=== PATIENT | female | born 1955 | race Caucasian/White ===

== ENCOUNTER → 2023-10-13 10:32 | Outpatient (REF) | payer OTHER, SELFPAY | LOC: HWRAD 10:32 | PROVIDERS: ATTENDING PHYSICIAN Family Medicine | DX: M54.16 Radiculopathy, lumbar region (principal); M62.830 Muscle spasm of back; N95.1 Menopausal and female climacteric states | CPT/HCPCS: 72110; 77080 ==

== ENCOUNTER → 2023-10-19 09:54 | Outpatient (REF) | payer OTHER, SELFPAY | LOC: RAD 09:54 | PROVIDERS: ATTENDING PHYSICIAN Family Medicine | DX: I83.893 Varicose veins of bilateral lower extremities with other complications (principal) | CPT/HCPCS: 93970 ==

== ENCOUNTER → 2023-12-25 13:52 | Outpatient (REF) | payer OTHER, SELFPAY | LOC: HWRCS 13:52 | PROVIDERS: ATTENDING PHYSICIAN Family Medicine | DX: R60.0 Localized edema (principal) | CPT/HCPCS: 93306 ==

== ENCOUNTER 2024-02-16 14:47 | Outpatient (RCR) | payer OTHER, SELFPAY | END 2024-02-16 23:59 | disposition home or self-care (01) | LOC: RPT 14:47 | PROVIDERS: ATTENDING PHYSICIAN Family Medicine | DX: I89.0 Lymphedema, not elsewhere classified (principal); Z73.6 Limitation of activities due to disability | CPT/HCPCS: 97110; 97140; 97163; 97535 ==

== ENCOUNTER 2024-03-29 12:47 | Outpatient (RCR) | payer OTHER, SELFPAY | END 2024-03-29 23:59 | disposition home or self-care (01) | LOC: RPT 12:47 | PROVIDERS: ATTENDING PHYSICIAN Family Medicine | DX: I89.0 Lymphedema, not elsewhere classified (principal); Z73.6 Limitation of activities due to disability | CPT/HCPCS: 97110; 97140; 97164; 97530; 97535 ==

== ENCOUNTER 2024-04-29 11:06 | Outpatient (RCR) | payer OTHER, SELFPAY | END 2024-04-29 23:59 | disposition home or self-care (01) | LOC: RPT 11:06 | PROVIDERS: ATTENDING PHYSICIAN Family Medicine | DX: I89.0 Lymphedema, not elsewhere classified (principal); N39.3 Stress incontinence (female) (male); Z73.6 Limitation of activities due to disability | CPT/HCPCS: 97110; 97140; 97530 ==

== ENCOUNTER → 2024-05-06 13:34 | Outpatient (REF) | payer OTHER, SELFPAY | LOC: HWRAD 13:34 | PROVIDERS: ATTENDING PHYSICIAN Family Medicine | DX: Z87.891 Personal history of nicotine dependence (principal) | CPT/HCPCS: 76770 ==

== ENCOUNTER 2024-05-29 10:22 | Outpatient (RCR) | payer OTHER, SELFPAY | END 2024-05-29 23:59 | disposition home or self-care (01) | LOC: RPT 10:22 | PROVIDERS: ATTENDING PHYSICIAN Family Medicine | DX: I89.0 Lymphedema, not elsewhere classified (principal); N39.3 Stress incontinence (female) (male); Z73.6 Limitation of activities due to disability; R26.2 Difficulty in walking, not elsewhere classified | CPT/HCPCS: 97110; 97112; 97140 ==

== ENCOUNTER 2024-06-21 10:33 | Outpatient (RCR) | payer OTHER, SELFPAY | END 2024-06-21 23:59 | disposition home or self-care (01) | LOC: RPT 10:33 | PROVIDERS: ATTENDING PHYSICIAN Family Medicine | DX: I89.0 Lymphedema, not elsewhere classified (principal); N39.3 Stress incontinence (female) (male); Z73.6 Limitation of activities due to disability; R26.2 Difficulty in walking, not elsewhere classified | CPT/HCPCS: 97110; 97112; 97140 ==

== ENCOUNTER → 2024-07-22 08:45 | Outpatient (REF) | payer OTHER, SELFPAY | LOC: RAD 08:45 | PROVIDERS: ATTENDING PHYSICIAN Family Medicine | DX: E11.65 Type 2 diabetes mellitus with hyperglycemia (principal) | CPT/HCPCS: 93922; 93925 ==

== ENCOUNTER 2024-07-25 11:55 | Outpatient (RCR) | payer OTHER, SELFPAY | END 2024-07-25 23:59 | disposition home or self-care (01) | LOC: RPT 11:55 | PROVIDERS: ATTENDING PHYSICIAN Family Medicine | DX: I89.0 Lymphedema, not elsewhere classified (principal); N39.3 Stress incontinence (female) (male); Z73.6 Limitation of activities due to disability; R26.2 Difficulty in walking, not elsewhere classified | CPT/HCPCS: 97110; 97112; 97530 ==

== ENCOUNTER 2024-08-23 08:58 | Outpatient (RCR) | payer OTHER, SELFPAY | END 2024-08-23 10:56 | disposition home or self-care (01) | LOC: RPT 08:58 | PROVIDERS: ATTENDING PHYSICIAN Family Medicine | DX: I89.0 Lymphedema, not elsewhere classified (principal); N39.3 Stress incontinence (female) (male); Z73.6 Limitation of activities due to disability; R26.2 Difficulty in walking, not elsewhere classified | CPT/HCPCS: 97110 ==

== ENCOUNTER 2025-01-07 10:11 | Emergency (ER) | payer OTHER, SELFPAY ==
[2025-01-07 10:16] VITALS: BP 133/68
[2025-01-07 12:05] VITALS: BMI 37.9
--- NOTE | 2025-01-07 13:04 | ED.GENMED ---
History of Present Illness
General
Chief Complaint: Back Pain
Source: patient
Exam Limitations: none
Time Seen by Provider: 01/07/25 12:51
Nursing documentation reviewed up to this point in time: agreed with
History of Present Illness
History of Present Illness:
69 yo female w h/o HTN, HLD, CKD, IDDM, presents with low back pain for past 9 days. Saw PCP and is on Steroid taper day #4, Gabapentin 100 mg BID, Tylenol with no relief. Has MRI scheduled for tomorrow. This a.m. could not move due to pain, called
EMS to come here.
Pt laying in bed, calm, states pain is across lower back, 01/09, cannot move to get OOB due to pain
Denies loss of bowel or bladder control, saddle anesthesia or weakness in legs. Denies fever. Denies abdominal pain.
Past History
Past History
ED Past Medical History: CVA (right M1 stroke), Hypercholesterolemia and Other (COVID-18 September 2021, obesity)
ED Past Surgical History:
Social History
Tobacco: Former smoker
Personal:
Living: with family
Family History
Family History: Other (reviewed and noncontributory)
Review of Systems
Review of Systems
Allergies reviewed?: Yes
All Other Systems: ROS reviewed and negative except as documented in HPI and ROS
Constitutional: Denies fever
ABD/GI: Denies abdominal pain
: Denies dysuria, incontinence or difficulty voiding
Musculoskeletal: Reports back pain
Skin: Reports no symptoms
Neurological: Reports weakness (Chronic left leg weakness post CVA 2021)
Phy Exam
Physical Exam
Physical Exam:
GENERAL: No acute distress. A&Ox3.
CONSTITUTIONAL: Afebrile.
EYES: clear, conjunctivae normal
ENMT: moist mucus membranes
RESPIRATORY: Regular respirations, nonlabored, lungs clear.
CARDIOVASCULAR: Regular rate and rhythm, no murmurs, no rubs.
GI: Soft, nontender, normal BS
MUSCULOSKELETAL: Pain low back with any movement. SLR each leg to 20 degrees off bed before too painful. Well perfused.
SKIN: Warm, dry, pink
PSYCH: Normal mood and affect. Well kept, interactive and appropriate
NEUROLOGIC: Awake, alert and oriented. No focal neurological deficits. Strength equal throughout. Equal patellar reflexes. Sensation to touch equal both legs.
Course
Orders/Labs/Results
Orders:
Orders
01/07/25 13:03
Diazepam [Valium] 2 mg PO NOW STA
HYDROmorphone [Dilaudid] 1 mg IM NOW STA
01/07/25 17:23
Complete Blood Count/With Diff Urgent
Comprehensive Metabolic Panel Urgent
01/07/25 17:39
Dexamethasone [Decadron] 10 mg PO NOW STA
Abnormal Lab Results
01/07/25
17:23
RBC 4.18 L 10^6/uL
(4.20-5.40)
MCH 31.6 H pg
(27.0-31.0)
MPV 10.7 H fL
(7.4-10.4)
Abs Immat Gran (auto) 0.1 H 10^3/uL
(0-0.05)
Absolute Lymphs (auto) 1.0 L 10^3/uL
(1.2-3.4)
Immature Gran % 0.9 H %
(0-0.5)
Lymphocytes % 14.3 L %
(20.5-51.1)
Chloride 108 H mmol/L
(98-107)
BUN 18 H mg/dl
(7-17)
Glucose 171 H mg/dl
(70-99)
AST 57 H U/L
(14-36)
ALT 57 H U/L
(0-35)
01/07/25 17:23
01/07/25 17:23
Vital Signs
Initial and Last Documented VS:
Initial Vital Signs
Temp Pulse Resp BP Pulse Ox
98.7 F 75 16 133/68 98
01/07/25 10:16 01/07/25 10:16 01/07/25 10:16 01/07/25 10:16 01/07/25 10:16
Last Documented Vital Signs
Temp Pulse Resp BP Pulse Ox
98.7 F 54 15 143/62 95
01/07/25 10:16 01/07/25 15:48 01/07/25 14:50 01/07/25 16:00 01/07/25 15:48
MDM/Problems Addressed
Differential Diagnosis Includes:
herniated disc, sciatica, low back strain, SI sprain
MDM/Problems Addressed:
69 yo female w h/o HTN, HLD, CKD, IDDM, presents with low back pain for past 9 days. Saw PCP and is on Steroid taper day #4, Gabapentin 100 mg BID, Tylenol with no relief. Has MRI scheduled for tomorrow. This a.m. could not move due to pain, called
EMS to come here.
Pt laying in bed, calm, states pain is across lower back, 01/09, cannot move to get OOB due to pain
Denies loss of bowel or bladder control, saddle anesthesia or weakness in legs. Denies fever. Denies abdominal pain.
Afebrile, NAD
No infectious symptoms
Chronic weakness left leg since CVA 2021
Plan: Medicate for pain, ambulate, rx for Flexeril and Vicodin #3 tabs sent to her pharmacy to get her through until tomorrow 7 a.m. MRI
No cauda equina
No neuro deficits
3:10 p.m.
Pt OOB to chair, feels dizzy but hasn't eaten all day. Given lunch.
3:30 p.m.
Feeling 'woozy' helped back to bed, needs help of one person, shuffling gait.
States pain is better but when attempt to get up, cannot weight bear or walk due to pain
4:45 PM:
After pain medication, muscle relaxant, multiple attempts to get patient out of bed and ambulating, we provided her with a walker, she is unable to take any steps due to her back pain.
Plan: Admit: Intractable back pain, ambulatory dysfunction, get previously scheduled MRI here tomorrow
Hospitalist notified of admission.
Hospitalist Dr. Robertson in and explained to patient how if she is an inpatient she may not get the MRI tomorrow as out pt MRI is not same at in pt MRI. She may be on a list and not even be able to get it tomorrow. It would benefit her to go home and
keep her MRI appointment for tomorrow morning guaranteed to get it then.
Pt and are comfortable and agree with this plan.
Chronic conditions affecting care: Other (CA 2021 with residual left leg weakness)
*Pulse Oximetry
SaO2: 98
Oxygen Mode of Delivery: Room air
Patient hypoxic: not evaluated
*Critical Care Note
Total Time (30-74mins, 75-104mins- exclusive of procedures): Not Applicable
ED Attending Note
-
Portions of this chart may have been created with voice recognition software.� Occasional wrong word or��sound alike� substitutions may have occurred due to the inherent limitations of voice recognition software.
Discharge Plan
Departure
Patient Disposition: Home (Routine Discharge)
Date of Disposition: 01/07/25
Time of Disposition: 17:39
Admit to: Med/Surg
Patient with high blood pressure during this ER visit?: No
Condition: Fair
Discharge Problem:
Low back pain
Instructions: Low Back Pain (DC)
Prescriptions:
New
hydrocodone-acetaminophen 5-300 mg tablet
1 tab PO Q6H PRN (Reason: Pain) Qty: 5 0RF
cyclobenzaprine 10 mg tablet
10 mg PO HS PRN (Reason: back pain) Qty: 10 0RF
No Action
prednisone 10 mg Tablet
10 mg PO DIRECTED
Patient Comments:
01/07/2025, pt. has 1 half tablet left per spouse.
Rx Instructions:
2 tablets (20 mg) x 3 days
1 tablet (10 mg) x 3 days
0.5 tablet (5 mg) x 3 days
Theragen Tablet
1 tab PO HS
acetaminophen [Tylenol Extra Strength] 500 mg Tablet
1,000 mg PO BIDPRN PRN (Reason: mild pain)
ibuprofen 200 mg Tablet
200 mg PO DAILYPRN PRN (Reason: mild pain)
gabapentin 300 mg Capsule
300 mg PO BID
vitamin B complex Tablet
1 tab PO NOON
insulin aspart U-100 [Novolog FlexPen U-100 Insulin] 100 unit/mL (3 mL) Insulin Pen
1 sliding scale dose SC DIRECTED
Rx Instructions:
if blood sugar is 131-180 = 4 units; 181-240 = 8 units; 241-300 = 10 units; 301-350 = 12 units; 351-400 = 16 units; >400 = 20 units.
calcium
0.5 tab PO BID
clopidogrel 75 MG tablet
75 mg PO HS
Referrals:
Maura Tavares DO [Family Provider, Family Practice]
Activity Restrictions/Additional Instructions:
As we discussed and you discussed with Dr. Robertson, keep your MRI appointment for tomorrow.
I sent a prescription to your pharmacy for Vicodin for pain and also Flexeril for muscle relaxant.
Stop the gabapentin since it is not helping and it is not safe to take if you are taking Vicodin and Flexeril.
Keep your MRI appointment for tomorrow.
Use the walker at all times when up and around to avoid falling
Interventions
Interventions:
*Risk Screen - Suicide Last Done: 01/07/25 10:16
*Neglect/Abuse Screening Last Done: 01/07/25 10:16
*Nursing Disposition Last Done: 01/07/25 18:03
ED-Musculoskeletal Assessment Last Done: 01/07/25 12:10
Discharge Date and Time
Discharge Date/Time: 01/07/25 18:03
Print Language: SCOTTISH
[2025-01-07] MEDS: VALIUM 2 MG PO (13:26)
[2025-01-07] MEDS: DILAUDID 1 MG IM (13:26)
[2025-01-07 14:50] VITALS: BP 130/66
[2025-01-07 15:48] VITALS: BP 148/67
[2025-01-07 16:00] VITALS: BP 143/62
[2025-01-07 17:31] LABS: Hematocrit 39.3 % (37.0-47.0); Hemoglobin 13.2 g/dL (12.0-16.0); Mean Corp Hgb Conc. 33.6 g/dL (33.0-37.0); Mean Corpuscular Volume 94.0 fL (81.0-99.0); Nucleated Red Blood Cells % 0 %; Platelet Count 273 10^3/uL (130-400); Red Cell Dist. Width 12.3 % (11.5-14.5)
--- NOTE | 2025-01-07 17:39 | W.PN.UPDATE ---
Update Note
Progress Note Update
This note serves as an addendum to the H&P by director operating TYSHAWN Charlene Cantu
HPI
69F Obesity, Former smoker, HX CVA R M1 stoke, HTN, HLD, CKD, IDDM seen at ER
- pw LBP 9 days
- saw PCP and is on Steroid taper day #4
- Gabapentin 100 mg BID, Tylenol with no relief.
- MRI scheduled for tomorrow
- she could not move due to pain, called EMS to come here.
Pt laying in bed, calm, states pain is across lower back, 01/09
cannot move to get OOB due to pain
Denies loss of bowel or bladder control, saddle anesthesia or weakness in legs.
Denies fever. Denies abdominal pain.
Relevant VS
PE
Gen: laying in bed, calm, states pain is across lower back, 01/09, cannot move to get OOB due to pain
HEENT: atraumatic
Neck: supple
Lungs: CTA
Cor: RRR S1 S2
Abdomen: benign
TOW PICKER:Left sided weakness)
MS: Pain low back with any movement. SLR each leg to 20 degrees off bed before too painful. Well perfused.
Relevant data
Last hospitalist admission: 09/13/2021 - 09/18/2021
DC DX: Cerebrovascular accident.
ASSESSMENT & PLAN
Pending Rx reconciliation
Acute lower back pain
Associated acute gait dysfunction
No red flaf clinical features of cord compression or radiculopathy
- Inadequate pain control afte PO Valium 2mg , IM Dilaudid 1mg
- Medrol dose pack
- Zanaflex
- IV Dilaudid PRN
- escalade Gabapentin to 300mg tid in place of q12h - hold for excessive sedation
- PT/OT
- BW regime
Acute R MCA CVA s/p IAT and TPA on 09/13/21
HX Bilateral carotid disease, 50% stenosis
- on Plavix
Benign HTN
IDDM
- hold standing insulin
- add SSI
DM
- add IS low
Severe morbid obesity, BMI 40
- affects all aspects of life
Disposition:
Case dw patient in the presence spouse, ER AP and hospitalist AP regarding observation status admission:
Patient has OP MRI appointment today at .
Patient and spouse opted to leave and decide to have OP MRI on 01/08/25Monday am.
This note serves as consult to ER
[2025-01-07] MEDS: DECADRON 10 MG PO (17:51)
[2025-01-07 18:00] LABS: ALT (SGPT) 57 U/L (0-35); AST (SGOT) 57 U/L (14-36); Albumin 4.4 g/dl (3.5-5.0); Alkaline Phosphatase 90 U/L (38-126); Blood Urea Nitrogen 18 mg/dl (7-17); Calcium 9.4 mg/dl (8.4-10.2); Carbon Dioxide 24 mmol/L (22-30); Chloride 108 mmol/L (98-107); Estimated Creatinine Clearance 99 ml/min; Glucose 171 mg/dl (70-99); Potassium 4.5 mmol/L (3.5-5.1); Sodium 138 mmol/L (135-145); Total Protein 7.4 g/dl (6.3-8.2); eGFR > 60.00
== END 2025-01-07 18:03 | disposition home or self-care (01) ==
LOC: EMR 10:11
PROVIDERS: Registered Nurse; EMERGENCY PHYSICIAN Emergency Medicine; FAMILY PHYSICIAN Family Medicine
DX: M54.50 Low back pain, unspecified (principal); I12.9 Hypertensive chronic kidney disease with stage 1 through stage 4 chronic kidney disease, or unspecified chronic kidney disease; E11.22 Type 2 diabetes mellitus with diabetic chronic kidney disease; N18.9 Chronic kidney disease, unspecified; E78.00 Pure hypercholesterolemia, unspecified; E66.01 Morbid (severe) obesity due to excess calories; I69.359 Hemiplegia and hemiparesis following cerebral infarction affecting unspecified side; Z68.41 Body mass index [BMI] 40.0-44.9, adult; Z79.02 Long term (current) use of antithrombotics/antiplatelets; Z79.899 Other long term (current) drug therapy; Z86.16 Personal history of COVID-19; Z87.891 Personal history of nicotine dependence
CPT/HCPCS: 99283; 96372; 80053; 85025

== ENCOUNTER → 2025-01-08 07:21 | Outpatient (REF) | payer OTHER, SELFPAY | LOC: MRI 07:21 | PROVIDERS: ATTENDING PHYSICIAN Family Medicine | DX: M54.41 Lumbago with sciatica, right side (principal); M54.16 Radiculopathy, lumbar region | CPT/HCPCS: 72148 ==

== ENCOUNTER 2025-01-12 17:00 | Observation (INO) | payer OTHER, SELFPAY ==
[2025-01-12 13:21] VITALS: BP 149/74
--- NOTE | 2025-01-12 16:12 | CM ---
CM reviewed chart and met with pt and bedside in ED. Lives with in 2 story home, 3 PURVI, first floor half BA, second floor BR/full BA. Pt told me she could not get up from the floor and had to call 911. When asked if she fell, she
told me she was sleeping on a low mattress and rolled onto the floor attempting to get up to use the BR.
Pt states back pain has been getting worse over several months, was ambulating with RW. Was able to get to MRI last week and PCP appointment, used walker and available wheelchair to get from car to appointments.
PCP: Maura Ross
Pharmacy: [facility]
Discussed with Mikaela in ED, she plans to admit pt for PT assessment and CM follow up tomorrow.
--- NOTE | 2025-01-12 16:18 | ED.GENMED ---
History of Present Illness
General
Chief Complaint: Social Service Referral
Source: patient
Exam Limitations: none
Time Seen by Provider: 01/12/25 16:02
Nursing documentation reviewed up to this point in time: agreed with
History of Present Illness
History of Present Illness:
Patient is a 69-year-old female with history of hypertension, hyperlipidemia, insulin-dependent diabetes who presents to the emergency department with intractable pain and inability to care for self at home. Patient reports recently diagnosed
sacral insufficiency fracture which was found on MRI performed 01/08/2025. She states that she has had months of progressively worsening lower back/buttock pain, which has been worse with movement. Over the past few days�patient states she has been
unable to move very much without significant discomfort leading to difficulty with basic tasks such as getting to the bathroom, etc. She lives in a two-story home and has been unable to get onto the second level. They put a mattress on the floor
where she has been sleeping however today she was unable to get up from the mattress prompting call to 911.
She has been taking Vicodin every 6 hours for pain.
Patient states she is somewhat incontinent to urine which has been chronic. She denies any fever, chills, chest pain, shortness of breath.no numbness/tingling or weakness in lower extremities. No saddle paresthesias. She denies any falls or
trauma.
She is currently undergoing chemotherapy treatment, Keytruda for cervical cancer, also had a recent radiation treatment. She believes this may be contributing to insufficiency fracture.
Past History
Past History
ED Past Medical History: CVA (right M1 stroke), Hypercholesterolemia and Other (COVID-18 September 2021, obesity)
ED Past Surgical History:
Social History
Tobacco: Former smoker
Personal:
Living: with family
Family History
Family History: Other (reviewed and noncontributory)
Review of Systems
Review of Systems
Allergies reviewed?: Yes
All Other Systems: ROS reviewed and negative except as documented in HPI and ROS
Phy Exam
Physical Exam
Physical Exam:
Vitals: Hypertensive, otherwise vital signs stable. Afebrile
General: Patient is well appearing, no acute distress
Skin: Warm and dry, no rashes or lesions
Head: Normocephalic, atraumatic
Eyes: Sclera nonicteric.
Throat: Protecting airway
Neck: Normal ROM, no cervical spine tenderness, no meningismus
Cardiac: Regular rate and rhythm, no murmurs.
Pulm: Normal respiratory effort, no wheezes, rales, rhonchi heard on exam
Abdomen: Abdomen soft and nontender
Back: Significant pain in lower back with any movement.
Extremities: No evidence of cyanosis or edema. Strength 5/5 in bilateral lower extremities.
Neuro: AAOx3. CN II-XII grossly intact to examination. No focal neurologic deficits. Sensation to touch in both legs.
Psychiatric: Normal affect.
Course
Orders/Labs/Results
Orders:
Orders
01/12/25 Dinner
1800 calorie (15 carb) Diabetic
At Your Request: Full Participation
01/12/25 16:15
Hydrocodone 5/APAP 325 [Hoskins 5/325] 1 tablet PO NOW STA
01/12/25 16:50
Admit/Transfer Patient As Directed
Co-Sign Provider:
Level of Care: Observation services
Assign to:: Medical/Surgical
Physician / Group: Dr Ricks
Diagnosis: Sacral fracture
Reason for Hospitalization: Sacral fracture
PRN Pain Medication Management As Directed
May give lesser potent ordered pain med per pt: Yes
preference::
Protocol:: Medication orders for pain may be administered in a
manner that supports deferring to patient preference
when the pt is:
- Requesting an ordered lesser potent pain medication.
Least to most potent pain medications are defined
as: acetaminophen < NSAID < tramadol < opioids
(morphine, oxycodone, hydromorphone).
- Requesting a lesser dose of the same medication IF
ORDERED.
- Requesting a less intrusive route of administration
if both routes are prescribed by the provider (PO <
IV).
01/12/25 16:51
Code Status As Directed
Resuscitation Status: Full Code
01/12/25 16:54
Case Management Consult ONCE
Case Management Consult: Shelter Placement
Ot Eval And Treat Routine
Pt Eval And Treat Routine
Activity Level: Out of Bed-Early Mobility
01/12/25 16:55
Dextrose 50%-Water [Dextrose 50% Syringe] 12.5 grams IV [id number] PRN
Glucagon [GlucaGen] 1 mg IM PRN PRN
Bedside Glucose Monitoring As Directed
Frequency: AC&HS
Additional Instructions:: Change to q6h if pt on TPN, tube feeding or not eating
01/12/25 18:12
Acetaminophen [Tylenol] 650 mg PO Q4HPRN PRN
Bisacodyl [Dulcolax] 10 mg RECTAL [id number] PRN
Docusate W/Senna [Senokot-S] 1 tablet PO BIDPRN PRN
Enoxaparin Sodium [Lovenox] 40 mg SC QPM
Ketorolac [Toradol] 10 mg IV Q6HPRN PRN
Morphine Sulfate 2 mg IV Q4HPRN PRN
Polyethylene Glycol Powder [Miralax] 17 grams PO DAILYPRN PRN
01/12/25 18:12
Activity As Directed
Activity Level: Out of Bed-Early Mobility
Vital Signs As Directed
Frequency: Per unit guidelines
DX Deep Vein Thrombosis Video Routine
01/13/25 06:00
Basic Metabolic Panel IN AM
Complete Blood Count/No Diff IN AM
01/13/25 07:30
Insulin Aspart Corrective Mod [Novolog Flexpen-Moderate Resistance] See Protocol SC AC
Vital Signs
Initial and Last Documented VS:
Initial Vital Signs
Temp Pulse Resp BP Pulse Ox
98.4 F 94 16 149/74 95
01/12/25 13:21 01/12/25 13:21 01/12/25 13:21 01/12/25 13:21 01/12/25 13:21
Last Documented Vital Signs
Temp Pulse Resp BP Pulse Ox
97.6 F 66 16 116/62 95
01/12/25 23:24 01/12/25 23:24 01/12/25 23:24 01/12/25 23:24 01/12/25 23:24
MDM/Problems Addressed
Differential Diagnosis Includes:
Not limited to: Sacral insufficiency fracture, intractable pain, neuropathic pain, etc.
MDM/Problems Addressed:
69-year-old female presenting with intractable lower back pain and recently diagnosed sacral fracture. Patient with persistently worsening lower back pain over the past few months and found to have sacral insufficiency fracture on MRI performed
01/08/2025. Pain significantly worse with movement and she is unable to perform ADLs at home. No new neurologic symptoms or infectious symptoms. Vitals and physical exam as above.
MRI report reviewed which does show sacral insufficiency fracture� suspected secondary to past radiation treatment. There is no evidence of cauda equina. She has no new focal neurologic deficits on exam today. No indication for repeat imaging
today. However�given intractable pain and inability to complete ADLs at home�patient will likely need placement in acute rehab facility. Discussed with case management who was unable to place this evening. Physical therapy has already gone home
for the night. Patient will require admission to hospital tonight pending PT/CM consult tomorrow. Patient comfortable with plan. Patient accepted to hospitalist service in stable condition.
Chronic conditions affecting care:
Cervical cancer on chemotherapy, hypertension, insulin-dependent diabetes
Acute Exacerbation and/or Progression of Chronic Illness:
Acutely hypertensive
*Pulse Oximetry
SaO2: 95
Oxygen Mode of Delivery: Room air
Patient hypoxic: no
*EKG
Interpreted by ED Provider?: NA
*Sueding And Buffing Machine Operator Interpretation
Rate: Sueding And Buffing Machine Operator- N/A
*Critical Care Note
Total Time (30-74mins, 75-104mins- exclusive of procedures): Not Applicable
Data Reviewed
Review of Other/Old Records Reveals: Radiology Studies (MRI of lumbar spine performed 01/08/2025 which reveals suspected sacral insufficiency fracture)
Patient Management
Discussion with other providers: Hospitalist
Escalation/DeEscalation of care consider admission/obs:
Admit for intractable pain, case management/PT eval in morning
ED Attending Note
-
Portions of this chart may have been created with voice recognition software.� Occasional wrong word or��sound alike� substitutions may have occurred due to the inherent limitations of voice recognition software.
Discharge Plan
Departure
Patient Disposition: Admit
Date of Disposition: 01/12/25
Time of Disposition: 16:31
Presentation/result/management discussed w/ accepting MD/DO: Hospitalist
Discharge Problem:
Sacral insufficiency fracture, Intractable pain
Interventions
Interventions:
*Risk Screen - Suicide Last Done: 01/12/25 18:29
*Nursing Disposition Last Done: 01/12/25 17:30
ED-Musculoskeletal Assessment Last Done: 01/12/25 17:30
ED-Psychological Assessment Last Done: 01/12/25 17:30
Discharge Date and Time
Discharge Date/Time: 01/12/25 19:11
[2025-01-12] MEDS: NORCO 5/325 1 TABLET PO (16:21)
--- NOTE | 2025-01-12 16:53 | HPS.HSE ---
Family Physician
-
Family Physician: Maura Tavares
Chief Complaint
-
Back pain
History of Present Illness
Patient 69 years old female with history of CVA, obesity, hyperlipidemia, CKD, diabetes mellitus, came into the hospital with lower back and pelvic pain. Patient came in here with lower back pain and ambulatory dysfunction a few days ago and she
left the ER to get an outpatient MRI and she did and came back with positive sacral fracture. Patient has been taking pain medications at home and even been her pain has been significant moderate to intensity level associated with significant
ambulatory dysfunction. No bowel incontinence. She has bladder incontinence but this is chronic. No fevers or chills. No paresthesias or lower extremity weakness. She has not been able to do her regular ADLs and she even put a mattress on the
floor and unable to get some sleep so decided to call 911 and brought her into the hospital. She was referred to hospitalist service for further evaluation.
Medical History
Past Medical History
Past Medical History: Reports Other (Hyperlipidemia, CKD, diabetes mellitus, COVID-19, cervical cancer status post chemo and radiation, obesity.)
Past Surgical History: Reports Other ()
Social History
Tobacco: Former Smoker
Alcohol: None
Drug: None
Family History
Family History: Not pertinent
Allergies / Home Medications
Allergies reflects when Allergies were last updated in [facility].
Home Medications with original date entered in [facility]
Allergy/Medication List:
Allergies
Allergy/AdvReac Type Severity Reaction Status Date / Time
latex Allergy Mild Rash Verified 01/12/25 13:25
Penicillins Allergy Rash Verified 01/12/25 13:25
pollen extracts Allergy hay fever; Verified 01/12/25 13:25
nasal
symptoms
Home Medications
acetaminophen 500 mg tablet (Tylenol Extra Strength) 1,000 mg PO BIDPRN PRN mild pain 01/07/25
calcium 0.5 tab PO BID 01/07/25
clopidogrel 75 mg tablet 75 mg PO HS 01/07/25
cyclobenzaprine 10 mg tablet 10 mg PO HS PRN back pain #10 tabs 01/07/25
gabapentin 300 mg capsule 300 mg PO BID 01/07/25
hydrocodone 5 mg-acetaminophen 300 mg tablet 1 tab PO Q6H PRN Pain #5 tabs 01/07/25
ibuprofen 200 mg tablet 200 mg PO DAILYPRN PRN mild pain 01/07/25
insulin aspart U-100 100 unit/mL (3 mL) subcutaneous pen (Novolog FlexPen U-100 Insulin aspart) 1 sliding scale dose SC DIRECTED 01/07/25
prednisone 10 mg tablet 10 mg PO DIRECTED 01/07/25
therapeutic multivitamin 1 tab PO HS 01/07/25
vitamin B complex 1 tab PO NOON 01/07/25
Review of Systems
-
A 12 point ROS was completed and negative except as noted: Yes
Physical Exam
Vital Signs
Vital Signs
Temp Pulse Resp BP Pulse Ox
98.4 F 94 16 149/74 95
01/12/25 13:21 01/12/25 13:21 01/12/25 13:21 01/12/25 13:21 01/12/25 16:20
Physical exam:
General: Acutely ill. Distress due to pain
HEENT: Normocephalic, Atraumatic and Moist Mucous Membranes
Respiratory: Clear to Auscultation; Negative Wheezes, Rales or Rhonchi
Cardiac: Regular Rhythm and S1/S2
GI: Soft, Nontender and Nondistended
Musculoskeletal: Pain in the lower back area. No Clubbing, No Cyanosis and No Edema
Neuro: Awake, Alert and Oriented, no neurological deficit
Psych: Calm
Physical Exam
General: Other
Impression/Plan
-
IMPRESSION:
Patient 69 years old female with multiple comorbidities came into the hospital with pelvic and lower back pain associated with ambulatory dysfunction
PLAN:
Acute on chronic lower back pain/ Sacral insufficiency fracture with ambulatory dysfunction:
Pain control
PT OT eval
Case management for discharge dispo
CVA:
On Plavix
Unable to tolerate statin
Hyperlipidemia:
Has not tolerated multiple anti-cholesterol medications and allergic to latex on Repatha.
Diabetes mellitus:
Diabetic diet
Insulin sliding scale
Cervical cancer:
Status post chemo and radiation therapy and currently on Keytruda
DVT prophylaxis:
Lovenox SQ
CODE STATUS:
Full code
Time spent 55-minutes
[2025-01-12 18:26] LABS: Glucose - Point of Care 141 mg/dl (70-99)
[2025-01-12 18:43] VITALS: BP 104/72
[2025-01-12] MEDS: LOVENOX 40 MG SC (19:23)
[2025-01-12] MEDS: LIDOCAINE 4% PATCH 1 PATCH TOPICAL (19:25)
[2025-01-12 21:48] LABS: Glucose - Point of Care 167 mg/dl (70-99)
[2025-01-12] MEDS: PLAVIX 75 MG PO (22:17)
[2025-01-12] MEDS: TORADOL 10 MG IV (22:56)
[2025-01-12 23:24] VITALS: BP 116/62
[2025-01-13] MEDS: TORADOL 10 MG IV (05:12)
[2025-01-13 05:57] LABS: Hematocrit 35.6 % (37.0-47.0); Hemoglobin 12.0 g/dL (12.0-16.0); Mean Corp Hgb Conc. 33.7 g/dL (33.0-37.0); Mean Corpuscular Volume 94.2 fL (81.0-99.0); Platelet Count 266 10^3/uL (130-400); Red Cell Dist. Width 11.8 % (11.5-14.5)
[2025-01-13 06:11] LABS: Blood Urea Nitrogen 19 mg/dl (7-17); Calcium 9.2 mg/dl (8.4-10.2); Carbon Dioxide 24 mmol/L (22-30); Chloride 105 mmol/L (98-107); Glucose 130 mg/dl (70-99); Potassium 4.6 mmol/L (3.5-5.1); Sodium 136 mmol/L (135-145); eGFR > 60.00
[2025-01-13 07:38] VITALS: BP 140/66
[2025-01-13 08:18] LABS: Glucose - Point of Care 128 mg/dl (70-99)
--- NOTE | 2025-01-13 08:18 | W.PN.HOSP.TC ---
Today's Communication/Plan
-
Pain control. PT OT. Discharge planning
Assessment / Plan
Assessment / Plan
Physical exam:
General: Acutely ill. Distress due to pain
HEENT: Normocephalic, Atraumatic and Moist Mucous Membranes
Respiratory: Clear to Auscultation; Negative Wheezes, Rales or Rhonchi
Cardiac: Regular Rhythm and S1/S2
GI: Soft, Nontender and Nondistended
Musculoskeletal: Pain in the lower back area. No Clubbing, No Cyanosis and No Edema
Neuro: Awake, Alert and Oriented, no neurological deficit
Psych: Calm
A/P:
Acute on chronic lower back pain/ Sacral insufficiency fracture with ambulatory dysfunction:
Pain control
PT OT eval
Medically clear for discharge but awaiting for case management for discharge dispo
CVA:
On Plavix
Unable to tolerate statin
Hyperlipidemia:
Has not tolerated multiple anti-cholesterol medications and allergic to latex on Repatha.
Diabetes mellitus:
Diabetic diet
Insulin sliding scale
Cervical cancer:
Status post chemo and radiation therapy and currently on Keytruda
DVT prophylaxis:
Lovenox SQ
CODE STATUS:
Full code
Time spent 35 minutes
Anticipated Discharge: Today
Subjective/Interval History
-
Date of Service: January 13, 2025
Patient pain is improved. No chest pain or shortness of breath. Afebrile
Objective Data
-
Labs:
Laboratory Results
01/13/25
05:21
WBC 6.3
Hgb 12.0
Hct 35.6 L
Plt Count 266
Sodium 136
Potassium 4.6
Chloride 105
Carbon Dioxide 24
BUN 19 H
Creatinine 0.8
Glucose 130 H
Calcium 9.2
Vital Signs:
Vital Signs
Temp Pulse Resp BP Pulse Ox
98.6 F 70 12 140/66 96
01/13/25 07:38 01/13/25 07:38 01/13/25 07:38 01/13/25 07:38 01/13/25 07:38
I&O
01/12/25 01/13/25 01/14/25
06:59 06:59 06:59
Intake Total 480 / 480
Balance 480 / 480
[2025-01-13] MEDS: NOVOLOG FLEXPEN-MODERATE RESISTANCE SC (08:21)
[2025-01-13] MEDS: OSCAL CAL 500 250 MG PO ×2 (08:53→20:09)
[2025-01-13] MEDS: LIDOCAINE 4% PATCH 1 PATCH TOPICAL (08:53)
[2025-01-13 10:03] VITALS: BP 150/66; PULSE 74; O2SAT 97
[2025-01-13 10:04] VITALS: BP 150/66; PULSE 77; O2SAT 98
[2025-01-13 11:34] LABS: Glucose - Point of Care 182 mg/dl (70-99)
[2025-01-13] MEDS: NOVOLOG FLEXPEN-MODERATE RESISTANCE 1 UNITS SC ×2 (11:41→17:34)
[2025-01-13] MEDS: B COMPLEX w/VITAMIN C 1 CAPLET PO (11:43)
[2025-01-13] MEDS: ROXICODONE 5 MG PO ×2 (15:25→20:48)
[2025-01-13 15:41] VITALS: BP 140/69
[2025-01-13 16:33] LABS: Glucose - Point of Care 165 mg/dl (70-99)
[2025-01-13] MEDS: LOVENOX 40 MG SC (17:33)
--- NOTE | 2025-01-13 17:45 | CM ---
PT OT indicated Snf .
Pt and given Pacc Data
Referral entered for [facility] as requested.
Will need auth for SNF.
PLAN Located SNf and obtained auth
[2025-01-13 21:34] LABS: Glucose - Point of Care 151 mg/dl (70-99)
[2025-01-13] MEDS: PLAVIX 75 MG PO (21:53)
[2025-01-13 23:12] VITALS: BP 130/71
[2025-01-14 02:50] VITALS: BP 160/79
--- NOTE | 2025-01-14 03:23 | W.PN.UPDATE ---
Update Note
Progress Note Update
Per RN, patient found sitting on floor next to bed. Patient stated she slipped when attempting to change her brief. Patient evaluated, Alert and oriented x 3, no new pain, no bruising noted on buttocks or lower extremities, no swelling. Patient
denies that she hit her head. Patient denies any headache, dizziness, nausea/vomiting. No muscular/skeletal abnormalities noted. Patient states 'I'm fine, its nothing.' Patient declined additional testing.
--- NOTE | 2025-01-14 07:30 | FALL ---
Description of Fall:
Patient's roommate rang call reno to notify staff that patient was on the floor. Patient [id number], was observed in an upright seated position on the floor next to her bed. Patient admitted with sacral fracture,denies any new pain or injury, denies
hitting head, vitals BP 160/79 HR 106 RR 16 Pox 94 RA temp 98.4. Patient was seen approximately 10 minutes prior to fall seated in chair talking to roommate, as patient wanted to be seated in chair. Patient was heard talking to roommate up until
staff was notified that patient was on the floor. Patient reported sliding on to the floor and stated 'Oh this happens at home all the time, that is why I'm here'. Patient has stress incontinence and was observed attempting to change incontinent
pad. Bed alarm was placed and call reno placed within reach and patient encouraged to call for assistance. BACON SKINNER on shift notified and in to see patient.
Injuries Noted:
No injuries observed
Action Taken:
Bed alarm placed
Name of Provider Notified: Yu Fulton BACON SKINNER
[2025-01-14 07:39] LABS: Glucose - Point of Care 149 mg/dl (70-99)
[2025-01-14 08:07] VITALS: BP 125/75
[2025-01-14] MEDS: NOVOLOG FLEXPEN-MODERATE RESISTANCE SC (08:08)
[2025-01-14] MEDS: OSCAL CAL 500 250 MG PO ×2 (08:11→20:25)
[2025-01-14] MEDS: ROXICODONE 5 MG PO ×2 (08:11→14:53)
[2025-01-14] MEDS: LIDOCAINE 4% PATCH 1 PATCH TOPICAL (08:12)
--- NOTE | 2025-01-14 08:30 | W.PN.HOSP.TC ---
Today's Communication/Plan
-
Pain control. Discharge planning
Assessment / Plan
Assessment / Plan
Physical exam:
General: Acutely ill. Distress due to pain
HEENT: Normocephalic, Atraumatic and Moist Mucous Membranes
Respiratory: Clear to Auscultation; Negative Wheezes, Rales or Rhonchi
Cardiac: Regular Rhythm and S1/S2
GI: Soft, Nontender and Nondistended
Musculoskeletal: Pain in the lower back area. No Clubbing, No Cyanosis and No Edema
Neuro: Awake, Alert and Oriented, no neurological deficit
Psych: Calm
A/P:
Acute on chronic lower back pain/ Sacral insufficiency fracture with ambulatory dysfunction:
Pain control
PT OT eval
Medically clear for discharge but awaiting for case management for discharge dispo
CVA:
On Plavix
Unable to tolerate statin
Hyperlipidemia:
Has not tolerated multiple anti-cholesterol medications and allergic to latex on Repatha.
Diabetes mellitus:
Diabetic diet
Insulin sliding scale
Cervical cancer:
Status post chemo and radiation therapy and currently on Keytruda
DVT prophylaxis:
Lovenox SQ
CODE STATUS:
Full code
Time spent 35 minutes
Anticipated Discharge: Today
Subjective/Interval History
-
Date of Service: January 14, 2025
Patient slid off her bed last night but no trauma. Her pain fluctuates but feels current regimen is adequate.
Objective Data
-
Vital Signs:
Vital Signs
Temp Pulse Resp BP Pulse Ox
97.9 F 83 18 125/75 99
01/14/25 08:07 01/14/25 08:07 01/14/25 08:07 01/14/25 08:07 01/14/25 08:07
I&O
01/13/25 01/14/25 01/15/25
06:59 06:59 06:59
Intake Total 480 / 480 960 / 960
Balance 480 / 480 960 / 960
[2025-01-14] MEDS: NOVOLOG FLEXPEN-MODERATE RESISTANCE 1 UNITS SC (12:10)
[2025-01-14] MEDS: B COMPLEX w/VITAMIN C 1 CAPLET PO (12:11)
[2025-01-14 12:37] LABS: Glucose - Point of Care 194 mg/dl (70-99)
[2025-01-14 15:11] VITALS: BP 109/65
[2025-01-14 16:47] LABS: Glucose - Point of Care 256 mg/dl (70-99)
[2025-01-14] MEDS: LOVENOX 40 MG SC (17:47)
[2025-01-14] MEDS: NOVOLOG FLEXPEN-MODERATE RESISTANCE 5 UNITS SC (18:22)
[2025-01-14 21:23] LABS: Glucose - Point of Care 134 mg/dl (70-99)
[2025-01-14] MEDS: PLAVIX 75 MG PO (21:43)
[2025-01-14 23:29] VITALS: BP 153/69
[2025-01-15 07:35] VITALS: BP 114/65
[2025-01-15 07:47] LABS: Glucose - Point of Care 158 mg/dl (70-99)
[2025-01-15] MEDS: NOVOLOG FLEXPEN-MODERATE RESISTANCE 1 UNITS SC ×2 (08:02→17:41)
[2025-01-15] MEDS: OSCAL CAL 500 250 MG PO (08:03)
[2025-01-15] MEDS: LIDOCAINE 4% PATCH 1 PATCH TOPICAL (08:03)
[2025-01-15] MEDS: ROXICODONE 5 MG PO ×3 (08:09→16:24)
--- NOTE | 2025-01-15 09:53 | W.PN.HOSP.TC ---
Today's Communication/Plan
-
Discharge planning
Assessment / Plan
Assessment / Plan
Physical exam:
General: No acute distress.
HEENT: Normocephalic, Atraumatic and Moist Mucous Membranes
Respiratory: Clear to Auscultation; Negative Wheezes, Rales or Rhonchi
Cardiac: Regular Rhythm and S1/S2
GI: Soft, Nontender and Nondistended
Musculoskeletal: Pain in the lower back area. No Clubbing, No Cyanosis and No Edema
Neuro: Awake, Alert and Oriented, no neurological deficit
Psych: Calm
A/P:
Acute on chronic lower back pain/ Sacral insufficiency fracture with ambulatory dysfunction:
Pain control--> pain is reasonable with current pain medications but it wears off quickly. After discussion with RN looks like she does not ask for pain medications either for quite some time so that might be the issue so we will keep the same
regimen for now and educated the patient about this.
PT OT eval
Medically clear for discharge but awaiting for case management for discharge dispo
CVA:
On Plavix
Unable to tolerate statin
Hyperlipidemia:
Has not tolerated multiple anti-cholesterol medications and allergic to latex on Repatha.
Diabetes mellitus:
Diabetic diet
Insulin sliding scale
Cervical cancer:
Status post chemo and radiation therapy and has been on Keytruda
DVT prophylaxis:
Lovenox SQ
CODE STATUS:
Full code
Time spent 35 minutes
Anticipated Discharge: Today
Subjective/Interval History
-
Date of Service: January 15, 2025
Patient states the pain is reasonable. Does complain of pain in her back and also sometimes radiates to her left leg. No saddle paresthesias bowel incontinence. No nausea or vomiting. Afebrile
Objective Data
-
Vital Signs:
Vital Signs
Temp Pulse Resp BP Pulse Ox
98.5 F 75 14 114/65 98
01/15/25 07:35 01/15/25 07:35 01/15/25 07:35 01/15/25 07:35 01/15/25 07:35
I&O
01/14/25 01/15/25 01/16/25
06:59 06:59 06:59
Intake Total 960 / 960 1080 / 1080
Balance 960 / 960 1080 / 1080
--- NOTE | 2025-01-15 09:53 | W.DCSUMMARY ---
Discharge Summary
Discharge Data
Date of Admission: 01/12/25
Date of Discharge: 01/15/25
-
Pending Results: No
Hospital Course
Patient is 69 years old female with history of hyperlipidemia, CKD, CVA, diabetes mellitus came into the hospital with acute on chronic pelvic and lower back pain associated with sacral fracture. Patient was given pain medications and PT OT
evaluated the patient and recommended skilled rehab or acute rehab. Patient's pain has been more reasonably controlled. lean manager consulted for discharge disposition. She will be discharged in stable condition today.
Discharge Plan
-
Patient Disposition: Longterm/SNF
Discharge Diagnosis/Procedures: Acute on chronic back pain. Sacral insufficiency fracture. History of stroke. History of cervical cancer. History of diabetes mellitus.
Diet: Low Cholesterol
Activity: As tolerated
Blood Work: Please PCP to order CBC, BMP within 1 week
Referrals:
Maura Tavares DO [Family Provider, Family Practice] - in less than 1 week
Prescriptions:
New
oxycodone 5 mg Tablet
5 mg PO Q4HPRN PRN (Reason: severe pain) Qty: 4 0RF
Continued
cyclobenzaprine 10 mg tablet
10 mg PO HS PRN (Reason: back pain) Qty: 10 0RF
Theragen Tablet
1 tab PO HS
acetaminophen [Tylenol Extra Strength] 500 mg Tablet
1,000 mg PO BIDPRN PRN (Reason: mild pain)
gabapentin 300 mg Capsule
300 mg PO BID
vitamin B complex Tablet
1 tab PO NOON
insulin aspart U-100 [Novolog FlexPen U-100 Insulin] 100 unit/mL (3 mL) Insulin Pen
1 sliding scale dose SC DIRECTED
Rx Instructions:
if blood sugar is 131-180 = 4 units; 181-240 = 8 units; 241-300 = 10 units; 301-350 = 12 units; 351-400 = 16 units; >400 = 20 units.
calcium
0.5 tab PO BID
clopidogrel 75 MG tablet
75 mg PO HS
Discontinued
hydrocodone-acetaminophen 5-300 mg tablet
1 tab PO Q6H PRN (Reason: Pain) Qty: 5 0RF
prednisone 10 mg Tablet
10 mg PO DIRECTED
Patient Comments:
01/07/2025, pt. has 1 half tablet left per spouse.
Rx Instructions:
2 tablets (20 mg) x 3 days
1 tablet (10 mg) x 3 days
0.5 tablet (5 mg) x 3 days
ibuprofen 200 mg Tablet
200 mg PO DAILYPRN PRN (Reason: mild pain)
Discharge Date and Time
Print Language: ZAMBIAN
[2025-01-15 10:11] VITALS: BP 149/71; PULSE 88; O2SAT 93
[2025-01-15 11:11] VITALS: BP 118/59; PULSE 74; O2SAT 98
[2025-01-15 11:49] LABS: Glucose - Point of Care 236 mg/dl (70-99)
[2025-01-15] MEDS: B COMPLEX w/VITAMIN C 1 CAPLET PO (12:18)
[2025-01-15] MEDS: NOVOLOG FLEXPEN-MODERATE RESISTANCE 3 UNITS SC (12:52)
--- NOTE | 2025-01-15 12:53 | CM ---
Addendum entered by Marilee Tse RN 01/15/25 14:08:
Spoke with Lisa at [facility] obtained auth # [id number] from 01/15/25 to 01/20/25 NRD call [phone] . Information given to Scot at [facility] .
Pt aware and notified.
Ambulance medical nec form completed Auth with Acute care is [id number].
PLAN To [facility] via ambulance
Original Note:
Scot at [facility] does have a bed.
Spoke with pt and Flex [phone] .[facility] did not have a bed today.
Pt and Flex picked [facility].
PT OT done today =SNF
Requested NPI from Scot at [facility]
[place]
[phone]
fax [phone]
PLAN To [facility] after auth obtained
[2025-01-15 15:19] VITALS: BP 133/79
[2025-01-15 16:38] LABS: Glucose - Point of Care 157 mg/dl (70-99)
[2025-01-15] MEDS: LOVENOX 40 MG SC (17:41)
== END 2025-01-15 19:32 ==
LOC: 3 WEST ACU 17:00
PROVIDERS: ADMITTING PHYSICIAN Hospitalist; EMERGENCY PHYSICIAN Emergency Medicine; FAMILY PHYSICIAN Family Medicine
DX: M84.48XA Pathological fracture, other site, initial encounter for fracture (principal); M54.50 Low back pain, unspecified; E78.00 Pure hypercholesterolemia, unspecified; E11.22 Type 2 diabetes mellitus with diabetic chronic kidney disease; Z86.73 Personal history of transient ischemic attack (TIA), and cerebral infarction without residual deficits; G89.29 Other chronic pain; E66.9 Obesity, unspecified; N18.9 Chronic kidney disease, unspecified; I12.9 Hypertensive chronic kidney disease with stage 1 through stage 4 chronic kidney disease, or unspecified chronic kidney disease; C53.9 Malignant neoplasm of cervix uteri, unspecified; R32 Unspecified urinary incontinence; Z86.16 Personal history of COVID-19; Z92.3 Personal history of irradiation; Z92.21 Personal history of antineoplastic chemotherapy; Z87.891 Personal history of nicotine dependence; Z79.02 Long term (current) use of antithrombotics/antiplatelets; Z79.4 Long term (current) use of insulin
CPT/HCPCS: 80048; 82962; 85027; 97162; 97167; 97530; 97535; 99285; G0378

== ENCOUNTER → 2025-01-17 11:04 | Outpatient (REF) | payer OTHER, SELFPAY ==
[2025-01-17 11:28] LABS: Hematocrit 33.8 % (37.0-47.0); Hemoglobin 11.3 g/dL (12.0-16.0); Mean Corp Hgb Conc. 33.4 g/dL (33.0-37.0); Mean Corpuscular Volume 94.4 fL (81.0-99.0); Platelet Count 259 10^3/uL (130-400); Red Cell Dist. Width 11.7 % (11.5-14.5)
[2025-01-17 11:37] LABS: Blood Urea Nitrogen 14 mg/dl (7-17); Calcium 8.9 mg/dl (8.4-10.2); Carbon Dioxide 23 mmol/L (22-30); Chloride 105 mmol/L (98-107); Glucose 155 mg/dl (70-99); Potassium 4.4 mmol/L (3.5-5.1); Sodium 134 mmol/L (135-145); eGFR > 60.00
== END ==
LOC: OLABP 11:04
PROVIDERS: ATTENDING PHYSICIAN Family Medicine
DX: Z86.73 Personal history of transient ischemic attack (TIA), and cerebral infarction without residual deficits (principal); M48.45 Fatigue fracture of vertebra, thoracolumbar region; M54.50 Low back pain, unspecified; R52 Pain, unspecified; E78.5 Hyperlipidemia, unspecified; C53.9 Malignant neoplasm of cervix uteri, unspecified
CPT/HCPCS: 36415; 80048; 85027

== ENCOUNTER → 2025-02-04 10:25 | Outpatient (REF) | payer OTHER, SELFPAY ==
[2025-02-04 10:52] LABS: Hematocrit 33.0 % (37.0-47.0); Hemoglobin 10.9 g/dL (12.0-16.0); Mean Corp Hgb Conc. 33.0 g/dL (33.0-37.0); Mean Corpuscular Volume 93.8 fL (81.0-99.0); Platelet Count 327 10^3/uL (130-400); Red Cell Dist. Width 11.9 % (11.5-14.5)
== END ==
LOC: OLABP 10:25
PROVIDERS: ATTENDING PHYSICIAN Family Medicine
DX: M48.45 Fatigue fracture of vertebra, thoracolumbar region (principal); M54.50 Low back pain, unspecified; R52 Pain, unspecified; E78.5 Hyperlipidemia, unspecified; C53.9 Malignant neoplasm of cervix uteri, unspecified; Z86.73 Personal history of transient ischemic attack (TIA), and cerebral infarction without residual deficits
CPT/HCPCS: 36415; 85027